=== PATIENT | female | born 1990 | race Caucasian/White ===

== ENCOUNTER 2023-07-16 14:01 | Emergency (ER) | payer OTHER ==
[~2023-07-16] VITALS: Ht 154.9 cm; Wt 56.7 kg
[2023-07-16] MEDS ORDERED: NAPR500T14 PO (15:56)
[2023-07-16] MEDS ORDERED: NORFLEX100MG PO (15:57)
[2023-07-16] MEDS ORDERED: CAMBIA50 MG PO (15:57)
== END 2023-07-17 00:08 | disposition home or self-care (01) ==
LOC: ER 14:01
DX: M54.89 Other dorsalgia (principal)
CPT/HCPCS: 72100; 96372; 99283; J1885; J2360

== ENCOUNTER 2024-03-01 15:09 | Emergency (ER) | payer OTHER ==
[~2024-03-01] VITALS: Ht 154.9 cm; Wt 54.4 kg
[~2024-03-01 15:09] MED LIST: CAMBIA50 MG PO; NAPR500T14 PO; NORFLEX100MG PO
[2024-03-01] MEDS ORDERED: KETOROLAC TROMETHAMINE 30 MG VIAL IM ONE (16:45)
[2024-03-01] MEDS ORDERED: CEFTRIAXONE SODIUM 1,000 MG VIAL IM ONE (16:45)
[2024-03-01] MEDS ORDERED: KETOROLAC TROMETHAMINE 60 MG VIAL IM ONE (16:46)
[2024-03-01] MEDS ORDERED: CEFTRIAXONE SODIUM 1,000 MG VIAL ONE (16:47)
[2024-03-01 17:06] LABS: URINE APPEARANCE Cloudy; URINE BILIRRUBIN Negative (NEGATIVE); URINE BLOOD Large; URINE COLOR Yellow; URINE GLUCOSE Negative (NEGATIVE); URINE KETONE Trace (NEGATIVE); URINE LEUKOCYTE Large; URINE NITRATE Positive
[2024-03-01 17:10] LABS: URINE CAST 7.63 uL (0.0-1.40); URINE EPITHELIAL CELLS 17.7 uL (0.0-38.8); URINE RBC 4173.6 uL (0.0-20.8); URINE WBC 671.9 uL (0.0-23.2)
[2024-03-01 17:50] LABS: URINE BACTERIA > 9821.5 uL (0.0-1933); URINE PROTEIN 100 (NEGATIVE)
== END 2024-03-01 18:37 | disposition home or self-care (01) ==
LOC: ER 15:11
PROVIDERS: General Practice
DX: N39.0 Urinary tract infection, site not specified (principal); R10.2 Pelvic and perineal pain
CPT/HCPCS: 36415; 96372; 99282; J0696; J1885

== ENCOUNTER 2024-06-18 11:37 | Emergency (ER) | payer OTHER ==
[~2024-06-18] VITALS: Ht 154.9 cm; Wt 57.6 kg
[2024-06-18] MEDS ORDERED: TRIAMCINOLONE ACETONIDE 40 MG/ML VIAL IM ONE (12:30)
[2024-06-18] MEDS ORDERED: KETOROLAC TROMETHAMINE 60 MG VIAL IM ONE (12:30)
[2024-06-18 13:52] LABS: PH,URINE 5.5 (5.0-8.0); URINE APPEARANCE Clear; URINE BILIRRUBIN Negative (NEGATIVE); URINE BLOOD Moderate; URINE COLOR Yellow; URINE GLUCOSE Negative (NEGATIVE); URINE LEUKOCYTE Trace; URINE NITRATE Negative; URINE PROTEIN Negative (NEGATIVE)
[2024-06-18 13:53] LABS: URINE BACTERIA 583.8 uL (0.0-1933); URINE EPITHELIAL CELLS 39.8 uL (0.0-38.8); URINE RBC 67.7 uL (0.0-20.8); URINE WBC 13.1 uL (0.0-23.2)
[2024-06-18 13:54] LABS: URINE KETONE 40 (NEGATIVE)
[2024-06-18] MEDS ORDERED: DICLOFENAC SODI75 MG PO (14:17)
== END 2024-06-18 14:23 | disposition home or self-care (01) ==
LOC: ER 11:39
PROVIDERS: General Practice
DX: N39.0 Urinary tract infection, site not specified (principal); M54.9 Dorsalgia, unspecified

== ENCOUNTER 2024-08-04 11:55 | Emergency (ER) | payer OTHER ==
[~2024-08-04] VITALS: Ht 154.9 cm; Wt 58.1 kg
[~2024-08-04 11:55] MED LIST changes: +DICLOFENAC SODI75 MG PO
[2024-08-04] MEDS ORDERED: PEPCID AC20 MG PO (13:11)
[2024-08-04] MEDS ORDERED: ZOFRAN8 MG PO (13:11)
[2024-08-04] MEDS ORDERED: ONDANSETRON HCL 2 MG/ML VIAL IM ONE (13:15)
[2024-08-04] MEDS ORDERED: FAMOtidine 10 MG/ML (4ML VIAL) IV PUSH ONE (13:15)
[2024-08-04] MEDS ORDERED: ONDANSETRON HCL 2 MG/ML VIAL ONE (13:45)
[2024-08-04] MEDS ORDERED: FAMOTIDINE/PF 20 MG/2 ML VIAL ONE (13:45)
== END 2024-08-04 14:23 | disposition home or self-care (01) ==
LOC: ER 11:57
DX: O21.0 Mild hyperemesis gravidarum (principal); Z3A.10 10 weeks gestation of pregnancy
CPT/HCPCS: 96365; 96372; 99282; J2405; J3490

== ENCOUNTER 2024-08-31 17:05 | Emergency (ER) | payer OTHER ==
[~2024-08-31] VITALS: Ht 154.9 cm; Wt 54.4 kg
[~2024-08-31 17:05] MED LIST changes: +PEPCID AC20 MG PO; +ZOFRAN8 MG PO
[2024-08-31] MEDS ORDERED: 0.9 % SODIUM CHLORIDE 1,000 ML IV ONE (18:15)
[2024-08-31] MEDS ORDERED: ONDANSETRON HCL 2 MG/ML VIAL IV ONE (18:15)
[2024-08-31] MEDS ORDERED: PANTOPRAZOLE SODIUM 40 MG/VIAL VIAL IV ONE (18:15)
[2024-08-31 18:28] LABS: HEMATOCRIT 41.1 % (36.0-45.00); HEMOGLOBIN 14.2 g/dL (12.0-15.00); MEAN CELL VOLUME 90.6 fL (80.00-100.00); MEAN CORPUSCULAR HEMOGLOBIN 31.4 pg (27.00-32.0); MEAN CORPUSCULAR HGB CONC 34.6 g/dl (32.0-36.0); PLATELET COUNT 302 K/uL (150-450); RED BLOOD COUNT 4.53 M/uL (4.00-6.00); RED CELL DISTRIBUTION WIDTH 12.4 % (11.5-14.5)
[2024-08-31] MEDS ORDERED: ONDANSETRON HCL 2 MG/ML VIAL ONE (18:28)
[2024-08-31 19:04] LABS: ALBUMIN 3.8 gm/dL (3.4-5.0); BILIRUBIN TOTAL 0.63 mg/dL (0.3-1.2); CALCIUM 9.4 mg/dL (8.5-10.1); CREATININE SERUM 0.65 mg/dL (0.55-1.02); GFR 105.63; GLOBULINA 4.4 G/DL (2.4-3.5); POTASSIUM 3.82 mEq/L (3.5-5.1); TOTAL PROTEIN 8.2 gm/dL (6.4-8.2)
[2024-08-31] MEDS ORDERED: PROTONIX40 MG PO (20:14)
[2024-08-31 20:24] LABS: PH,URINE 5.5 (5.0-8.0); URINE APPEARANCE Cloudy; URINE BILIRRUBIN Negative (NEGATIVE); URINE BLOOD Moderate; URINE GLUCOSE Negative (NEGATIVE); URINE LEUKOCYTE Moderate; URINE NITRATE Negative; URINE PROTEIN Trace (NEGATIVE)
[2024-08-31 21:10] LABS: URINE COLOR Dark Yellow
[2024-08-31 21:11] LABS: URINE BACTERIA 7522.6 uL (0.0-1933); URINE RBC 113.4 uL (0.0-20.8); URINE WBC 211.6 uL (0.0-23.2)
[2024-08-31 21:19] LABS: URINE CAST 0.44 uL (0.0-1.40); URINE KETONE >=160 (NEGATIVE); URINE MUCUS MODERATE
== END 2024-08-31 21:35 | disposition home or self-care (01) ==
LOC: ER 17:08
PROVIDERS: General Practice
DX: O21.0 Mild hyperemesis gravidarum (principal); Z3A.14 14 weeks gestation of pregnancy; N20.0 Calculus of kidney; Z88.8 Allergy status to other drugs, medicaments and biological substances

== ENCOUNTER 2024-12-08 16:57 | Inpatient (IN) | payer OTHER ==
[~2024-12-08] VITALS: Ht 154.9 cm; Wt 59.0 kg
[2024-12-08 16:53] VITALS: BP 106/70
[~2024-12-08 16:57] MED LIST changes: +PROTONIX40 MG PO
[2024-12-08] MEDS ORDERED: MAGNESIUM SULFATE IN WATER 100 ML IV ONE (17:15)
[2024-12-08] MEDS ORDERED: MAGNESIUM SULFATE IN WATER 500 ML IV SCH (17:15)
[2024-12-08] MEDS ORDERED: BETAMETHASONE ACETATE,SOD PHOS 30 MG/5 ML ML IM SCH (17:15)
[2024-12-08] MEDS ORDERED: RINGERS SOLUTION,LACTATED 1,000 ML IV SCH (17:15)
[2024-12-08] MEDS ORDERED: PRENATA CHEWAB1 EACH PO (17:43)
[2024-12-08] MEDS ORDERED: FOLIC ACID1 MG PO (17:44)
[2024-12-08 17:50] LABS: BASO % 0.4 % (0.1-1.2); EOS % 0.8 % (0.7-7.0); HEMATOCRIT 36.9 % (34.1-44.9); HEMOGLOBIN 12.7 g/dL (11.2-15.7); LYMPH # 2.13 (1.18-3.74); LYMPH % 18.1 % (19.3-53.1); MEAN CORPUSCULAR HEMOGLOBIN 31.4 pg (25.6-32.2); MONO # 1.09 (0.24-0.82); MONO % 9.3 % (4.7-12.5); NEUT # 8.36 (1.56-6.13); PLATELET COUNT 302 K/uL (163-369); RED BLOOD COUNT 4.05 M/uL (3.93-5.22); RED CELL DISTRIBUTION WIDTH 12.4 % (11.6-14.4)
[2024-12-08 18:19] LABS: INR < 0.93; PARTIAL THROMBOPLASTIN TIME 25.6 SECONDS (22.0-34.0)
[2024-12-08 18:26] LABS: BILIRUBIN TOTAL 0.29 mg/dL (0.3-1.2); CALCIUM 9.2 mg/dL (8.5-10.1); CREATININE SERUM 0.55 mg/dL (0.55-1.02); GFR 128.09; GLOBULINA 3.7 G/DL (2.4-3.5); POTASSIUM 4.28 mEq/L (3.5-5.1); TOTAL PROTEIN 6.7 gm/dL (6.4-8.2)
[2024-12-08 19:35] VITALS: BP 113/69
[2024-12-08 23:30] VITALS: BP 112/63
[2024-12-09 04:00] VITALS: BP 110/60
[2024-12-09 06:20] VITALS: BP 116/70; O2SAT 99
[2024-12-09] MEDS ORDERED: PNV,CALCIUM 72/IRON/FOLIC ACID 1 TAB TABLET PO SCH (09:00)
[2024-12-09 11:05] VITALS: BP 119/72
[2024-12-09 15:15] VITALS: BP 117/66
[2024-12-09 19:40] VITALS: BP 103/65
[2024-12-09] MEDS ORDERED: MAGNESIUM SULFATE IN WATER 500 ML IV SCH (23:00)
[2024-12-09 23:19] VITALS: BP 104/60
[2024-12-10 03:10] VITALS: BP 101/60
[2024-12-10 06:18] VITALS: BP 107/63; O2SAT 97
[2024-12-10 11:43] VITALS: BP 106/59; O2SAT 97
[2024-12-10] MEDS ORDERED: NIFEDIPINE 30 MG TAB.SA.OSM PO NR (13:00)
[2024-12-10 13:01] VITALS: BP 109/68; O2SAT 97
[2024-12-10 13:11] VITALS: BP 109/68; O2SAT 97
[2024-12-10 16:20] VITALS: BP 98/58
[2024-12-10] MEDS ORDERED: NIFEDIPINE 30 MG TAB.SA.OSM PO SCH (21:00)
[2024-12-11 00:25] VITALS: BP 100/60
[2024-12-11] MEDS ORDERED: NIFE60TA3 PO (07:44)
[2024-12-11 07:54] VITALS: BP 105/61
== END 2024-12-11 10:42 | disposition home or self-care (01) | DRG 833 ==
LOC: LDR 16:57 → OB/GYN 12-10 10:27
PROVIDERS: ADMIT Obstetrics & Gynecology Maternal & Fetal Medicine; ATTEND Obstetrics & Gynecology Maternal & Fetal Medicine
PROC: 4A1HXCZ Monitoring of Products of Conception, Cardiac Rate, External Approach (ICD-10-PCS; principal; 2024-12-08)
DX: O60.03 Preterm labor without delivery, third trimester (principal); Z3A.28 28 weeks gestation of pregnancy

== ENCOUNTER 2024-12-15 11:20 | Outpatient (CLI) | payer OTHER ==
[~2024-12-15 11:20] MED LIST changes: +FOLIC ACID1 MG PO; +NIFE60TA3 PO; +PRENATA CHEWAB1 EACH PO
== END 2024-12-15 12:20 | disposition home or self-care (01) ==
LOC: NST 11:20
PROVIDERS: ATTEND Obstetrics & Gynecology Maternal & Fetal Medicine
DX: Z34.83 Encounter for supervision of other normal pregnancy, third trimester (principal)

== ENCOUNTER 2025-01-25 16:33 | Emergency (ER) | payer OTHER ==
[~2025-01-25] VITALS: Ht 154.9 cm; Wt 63.5 kg
[2025-01-25 19:09] LABS: BASO % 0.5 % (0.1-1.2); EOS # 0.27 (0.04-0.54); EOS % 2.9 % (0.7-7.0); LYMPH # 2.06 (1.18-3.74); LYMPH % 22.1 % (19.3-53.1); MEAN PLATELET VOLUME 10.40 fl (9.4-12.4); MONO # 0.80 (0.24-0.82); MONO % 8.6 % (4.7-12.5); NEUT # 6.12 (1.56-6.13); NEUT % 65.5 % (34.0-71.1); RED CELL DISTRIBUTION WIDTH 11.9 % (11.6-14.4)
[2025-01-25 19:31] LABS: ALT/SGPT 15.0 U/L (12-78); AST/SGOT 21.0 U/L (15-37); BILIRUBIN TOTAL 0.18 mg/dL (0.3-1.2); BUN CREA RATIO 30.0 (7.0-25.0); CREATININE SERUM 0.66 mg/dL (0.55-1.02); GFR 103.78; GLOBULINA 4.2 G/DL (2.4-3.5); GLUCOSE FASTING 83.0 mg/dL (65-100); OSMOLALITY SERUM 279.0 MOSM/KG (275-295)
[2025-01-25 20:19] LABS: COVID-19 AG POSITIVE (NEGATIVE)
[2025-01-25] MEDS ORDERED: GUAIFENESIN 200 MG/10 ML BLIST.PACK PO STA (20:25)
[2025-01-25] MEDS ORDERED: GUAIFENESIN 200 MG/10 ML BLIST.PACK PO ONE (20:28)
== END 2025-01-25 21:19 | disposition home or self-care (01) ==
LOC: ER 16:43
PROVIDERS: General Practice
DX: Z34.90 Encounter for supervision of normal pregnancy, unspecified, unspecified trimester (principal); Z3A.35 35 weeks gestation of pregnancy; U07.1 COVID-19; Z88.5 Allergy status to narcotic agent

== ENCOUNTER 2025-01-27 12:43 | Inpatient (IN) | payer OTHER ==
[~2025-01-27] VITALS: Ht 152.4 cm; Wt 64.4 kg
[2025-01-27 12:50] VITALS: BP 107/72
[2025-01-27] MEDS ORDERED: BETAMETHASONE ACETATE,SOD PHOS 30 MG/5 ML ML IM ONE (13:15)
[2025-01-27] MEDS ORDERED: RINGERS SOLUTION,LACTATED 1,000 ML IV SCH (13:15)
[2025-01-27 13:54] LABS: BASO % 0.6 % (0.1-1.2); EOS # 0.38 (0.04-0.54); EOS % 4.3 % (0.7-7.0); LYMPH # 2.61 (1.18-3.74); LYMPH % 29.5 % (19.3-53.1); MEAN PLATELET VOLUME 10.90 fl (9.4-12.4); MONO # 0.69 (0.24-0.82); MONO % 7.8 % (4.7-12.5); NEUT # 5.09 (1.56-6.13); NEUT % 57.5 % (34.0-71.1); RED CELL DISTRIBUTION WIDTH 11.9 % (11.6-14.4)
[2025-01-27 14:10] LABS: ALT/SGPT 16.0 U/L (12-78); AST/SGOT 20.0 U/L (15-37); BILIRUBIN TOTAL 0.19 mg/dL (0.3-1.2); BUN CREA RATIO 28.0 (7.0-25.0); CREATININE SERUM 0.65 mg/dL (0.55-1.02); GFR 105.63; GLOBULINA 3.8 G/DL (2.4-3.5); GLUCOSE FASTING 67.0 mg/dL (65-100); OSMOLALITY SERUM 278.0 MOSM/KG (275-295)
[2025-01-27 14:19] LABS: INR < 0.93
[2025-01-27 15:20] VITALS: BP 146/88; O2SAT 97
[2025-01-27 15:21] VITALS: BP 133/79
[2025-01-27 15:45] LABS: EOSINOPHIL MAN 6.0 %; LYMPHOCYTE MAN 19.0 %; MONOCYTE MAN 1.0 %; NEUTROPHILS MAN 68.0 %
[2025-01-27 19:33] VITALS: BP 117/72; O2SAT 97
[2025-01-27 23:24] VITALS: BP 110/68
[2025-01-28] VITALS (8 sets, daily range): BP systolic 106–170; BP diastolic 63–90
[2025-01-28 09:17] LABS: COVID-19 AG NEGATIVE (NEGATIVE)
[2025-01-28] MEDS ORDERED: BETAMETHASONE ACETATE,SOD PHOS 30 MG/5 ML ML IM ONE (13:15)
[2025-01-28] MEDS ORDERED: LABETALOL HCL 100 MG/20 ML ML IV PUSH ONE (20:00)
[2025-01-28] MEDS ORDERED: LABETALOL HCL 100 MG/20 ML ML ONE (20:03)
[2025-01-28] MEDS ORDERED: LABETALOL HCL 200 MG/40 ML VIAL IV STA (20:08)
[2025-01-28] MEDS ORDERED: MAGNESIUM SULFATE IN WATER 500 ML IV SCH (20:15)
[2025-01-28] MEDS ORDERED: MAGNESIUM SULFATE IN WATER 4 GM/100 ML PIGGYBACK IV SCH (20:15)
[2025-01-28] MEDS ORDERED: LABETALOL HCL 200 MG TABLET PO SCH (21:00)
[2025-01-29 03:55] VITALS: BP 131/64
[2025-01-29 06:28] VITALS: BP 123/64; O2SAT 96
[2025-01-29] MEDS ORDERED: CITRIC ACID/SODIUM CITRATE 30 ML BLIST.PACK PO SCH (08:45)
[2025-01-29] MEDS ORDERED: CEFAZOLIN SODIUM 1,000 MG VIAL IV SCH (08:45)
[2025-01-29 11:30] VITALS: BP 124/70
[2025-01-29] MEDS ORDERED: OXYTOCIN 10 UNITS/ML VIAL ONE ×3 (12:53→18:14)
[2025-01-29] MEDS ORDERED: OXYTOCIN 1,000 ML IV SCH (13:30)
[2025-01-29] MEDS ORDERED: MORPHINE SULFATE 4 MG/ML CARTRIDGE IV PRN (13:30)
[2025-01-29] MEDS ORDERED: OxyCODONE HCL 5 MG TABLET (ROXICODONE) PO PRN (14:00)
[2025-01-29] MEDS ORDERED: ERYTHROMYCIN BASE OPHT 1GM EACH TUBE OP ONE (15:00)
[2025-01-29] MEDS ORDERED: GABAPENTIN 300 MG CAPSULE PO SCH (17:00)
[2025-01-29] MEDS ORDERED: LABETALOL HCL 100 MG TABLET PO SCH (17:00)
[2025-01-29] MEDS ORDERED: ACETAMINOPHEN 500 MG GEL..CAP PO ONE (17:09)
[2025-01-29 18:56] VITALS: BP 150/70
[2025-01-29] MEDS ORDERED: LABETALOL HCL 200 MG TABLET PO SCH (22:32)
[2025-01-29 22:34] VITALS: BP 195/94; BP 200/80
[2025-01-30] VITALS (31 sets, daily range): BP systolic 90–175; BP diastolic 59–100; O2SAT 42–100
[2025-01-30] MEDS ORDERED: hydrALAZINE HCL 20 MG VIAL ONE (01:19)
[2025-01-30] MEDS ORDERED: hydrALAZINE HCL 20 MG VIAL IV ONE ×2 (01:25→01:30)
[2025-01-30] MEDS ORDERED: MAGNESIUM SULFATE IN WATER 500 ML IV SCH (01:35)
[2025-01-30] MEDS ORDERED: MAGNESIUM SULFATE IN WATER 0.04 GM/ML IV.SOLN IV ONE (02:00)
[2025-01-30] MEDS ORDERED: PROPOFOL 100 ML IV SCH (02:30)
[2025-01-30] MEDS ORDERED: MIDAZOLAM HCL 50 MG in 0.9 % SODIUM CHLORIDE 100 ML IV SCH (02:30)
[2025-01-30] MEDS ORDERED: LABETALOL HCL 100 MG/20 ML ML IV PRN (02:45)
[2025-01-30 03:26] LABS: ABG PH 7.328 (7.35-7.45); ABG PO2 36.4 mmHg (80-100); BICARBONATE 25.8 mmol/l (23-25)
[2025-01-30 03:28] LABS: o2 100 %
[2025-01-30 03:30] LABS: ABG PH 7.424 (7.35-7.45)
[2025-01-30 03:31] LABS: ABG PO2 41.7 mmHg (80-100); BICARBONATE 22.3 mmol/l (23-25); o2 100 %
[2025-01-30] MEDS ORDERED: CISATRACURIUM BESYLATE 100 MG in 0.9 % SODIUM CHLORIDE 250 ML IV SCH (04:00)
[2025-01-30 04:36] LABS: BASO % 0.1 % (0.1-1.2); EOS # 0.02 (0.04-0.54); EOS % 0.1 % (0.7-7.0); LYMPH # 1.14 (1.18-3.74); LYMPH % 7.1 % (19.3-53.1); MEAN PLATELET VOLUME 10.60 fl (9.4-12.4); MONO # 1.07 (0.24-0.82); MONO % 6.7 % (4.7-12.5); NEUT # 13.57 (1.56-6.13); NEUT % 84.9 % (34.0-71.1); RED CELL DISTRIBUTION WIDTH 12.5 % (11.6-14.4)
[2025-01-30 04:46] LABS: BILIRUBIN TOTAL 1.19 mg/dL (0.3-1.2); BUN CREA RATIO 17.0 (7.0-25.0); CREATININE SERUM 0.78 mg/dL (0.55-1.02); GFR 85.59; GLOBULINA 3.1 G/DL (2.4-3.5); GLUCOSE FASTING 99.0 mg/dL (65-100); OSMOLALITY SERUM 283.0 MOSM/KG (275-295)
[2025-01-30 04:50] LABS: ALT/SGPT 684.0 U/L (12-78); AST/SGOT 1077.0 U/L (15-37)
[2025-01-30 07:43] LABS: URINE APPEARANCE Cloudy; URINE BILIRRUBIN Small (NEGATIVE); URINE BLOOD Large; URINE COLOR Red; URINE GLUCOSE Negative (NEGATIVE); URINE KETONE Negative (NEGATIVE); URINE LEUKOCYTE Small; URINE NITRATE Positive; URINE UROBILINOGEN 0.2 E.U./dl
[2025-01-30 07:53] LABS: URINE BACTERIA 80.4 uL (0.0-1933); URINE CAST 2.78 uL (0.0-1.40); URINE EPITHELIAL CELLS 9.9 uL (0.0-38.8); URINE RBC 6246.3 uL (0.0-20.8); URINE WBC 15.3 uL (0.0-23.2)
[2025-01-30] MEDS ORDERED: MIDAZOLAM HCL 100 MG in 0.9 % SODIUM CHLORIDE 100 ML IV SCH (08:30)
[2025-01-30] MEDS ORDERED: ENOXAPARIN SODIUM 40 MG/0.4 ML SYRINGE SUBCUTANEO SCH (09:00)
[2025-01-30] MEDS ORDERED: PANTOPRAZOLE SODIUM 40 MG/VIAL VIAL IV SCH (09:00)
[2025-01-30 09:12] LABS: URINE PROTEIN 300 (NEGATIVE)
[2025-01-30] MEDS ORDERED: CEFTRIAXONE SODIUM 2,000 MG in 0.9 % SODIUM CHLORIDE 100 ML IV SCH (10:30)
[2025-01-30] MEDS ORDERED: LABETALOL HCL 200 MG/40 ML VIAL IV SCH (11:54)
[2025-01-30] MEDS ORDERED: LABETALOL HCL 200 MG TABLET PO NR (12:20)
[2025-01-30 13:19] LABS: ABG PH 7.216 (7.35-7.45); ABG PO2 344.6 mmHg (80-100); BICARBONATE 30.7 mmol/l (23-25)
[2025-01-30 13:56] LABS: o2 100 %
[2025-01-30] MEDS ORDERED: LABETALOL HCL 200 MG TABLET PO SCH (17:00)
[2025-01-30 18:14] LABS: ABG PH 7.239 (7.35-7.45)
[2025-01-30 18:17] LABS: ABG PO2 218.3 mmHg (80-100); BICARBONATE 30.4 mmol/l (23-25); o2 100 %
[2025-01-30] MEDS ORDERED: DEXAMETHASONE SODIUM PHOSPHATE 4 MG/ML VIAL IV SCH (20:45)
[2025-01-30] MEDS ORDERED: REMDESIVIR 100 MG VIAL IV ONE (20:45)
[2025-01-30 23:33] LABS: INR < 0.93
[2025-01-31] VITALS (23 sets, daily range): BP systolic 92–124; BP diastolic 63–82; O2SAT 100
[2025-01-31 07:32] LABS: BASO % 0.1 % (0.1-1.2); EOS # 0.01 (0.04-0.54); EOS % 0.1 % (0.7-7.0); LYMPH # 0.75 (1.18-3.74); LYMPH % 6.5 % (19.3-53.1); MEAN PLATELET VOLUME 13.20 fl (9.4-12.4); MONO # 0.33 (0.24-0.82); MONO % 2.9 % (4.7-12.5); NEUT # 10.38 (1.56-6.13); NEUT % 89.9 % (34.0-71.1); RED CELL DISTRIBUTION WIDTH 12.8 % (11.6-14.4)
[2025-01-31 08:15] LABS: ALT/SGPT 877.0 U/L (12-78); BILIRUBIN TOTAL 0.62 mg/dL (0.3-1.2); BUN CREA RATIO 22.0 (7.0-25.0); CREATININE SERUM 0.88 mg/dL (0.55-1.02); GFR 74.46; GLOBULINA 3.2 G/DL (2.4-3.5); GLUCOSE FASTING 133.0 mg/dL (65-100); OSMOLALITY SERUM 276.0 MOSM/KG (275-295)
[2025-01-31 08:39] LABS: AST/SGOT 1045.0 U/L (15-37)
[2025-01-31] MEDS ORDERED: CALCIUM GLUCONATE 100 MG/ML VIAL IV ONE ×2 (08:45→21:15)
[2025-01-31] MEDS ORDERED: AZITHROMYCIN 500 MG VIAL IV SCH (09:00)
[2025-01-31] MEDS ORDERED: REMDESIVIR 100 MG VIAL IV SCH (09:00)
[2025-01-31 09:44] LABS: ABG PH 7.381 (7.35-7.45); ABG PO2 374.8 mmHg (80-100); BICARBONATE 30.9 mmol/l (23-25)
[2025-01-31 09:45] LABS: o2 100 %
[2025-01-31 11:06] LABS: ABG PH 7.394 (7.35-7.45); ABG PO2 326.1 mmHg (80-100); BICARBONATE 31.3 mmol/l (23-25)
[2025-01-31 11:07] LABS: o2 80 %
[2025-01-31] MEDS ORDERED: CALCIUM GLUCONATE 100 MG/ML VIAL IV NR (12:00)
[2025-01-31 18:32] LABS: BASO % 0.1 % (0.1-1.2); EOS # 0.01 (0.04-0.54); EOS % 0.1 % (0.7-7.0); LYMPH # 0.89 (1.18-3.74); LYMPH % 8.1 % (19.3-53.1); MEAN PLATELET VOLUME 11.90 fl (9.4-12.4); MONO # 0.56 (0.24-0.82); MONO % 5.1 % (4.7-12.5); NEUT # 9.44 (1.56-6.13); NEUT % 85.9 % (34.0-71.1); RED CELL DISTRIBUTION WIDTH 12.6 % (11.6-14.4)
[2025-01-31 18:51] LABS: BUN CREA RATIO 31.0 (7.0-25.0); CREATININE SERUM 0.75 mg/dL (0.55-1.02); GFR 89.55; GLUCOSE FASTING 115.0 mg/dL (65-100); OSMOLALITY SERUM 284.0 MOSM/KG (275-295)
[2025-01-31 19:16] LABS: D DIMER 5.66 MG/L
[2025-01-31] MEDS ORDERED: POTASSIUM CHLORIDE 20MEQ/100ML H2O PB IV SCH (21:15)
[2025-02-01] VITALS (15 sets, daily range): BP systolic 115–1222; BP diastolic 56–99; O2SAT 97–100
[2025-02-01 08:04] LABS: COVID-19 AG NEGATIVE (NEGATIVE)
[2025-02-01 08:08] LABS: ALT/SGPT 657.0 U/L (12-78); AST/SGOT 461.0 U/L (15-37); BILIRUBIN TOTAL 0.5 mg/dL (0.3-1.2); BILIRUBIN,CONJUGATED 0.12 mg/dL (0.0-0.2); BUN CREA RATIO 32.0 (7.0-25.0); CREATININE SERUM 0.73 mg/dL (0.55-1.02); GFR 92.39; GLOBULINA 3.2 G/DL (2.4-3.5); GLUCOSE FASTING 86.0 mg/dL (65-100); LDH 814.0 U/L (84-246); OSMOLALITY SERUM 290.0 MOSM/KG (275-295)
[2025-02-01 08:50] LABS: BASO % 0.1 % (0.1-1.2); EOS # 0.03 (0.04-0.54); EOS % 0.3 % (0.7-7.0); LYMPH # 1.33 (1.18-3.74); LYMPH % 11.3 % (19.3-53.1); MEAN PLATELET VOLUME 11.60 fl (9.4-12.4); MONO # 0.73 (0.24-0.82); MONO % 6.2 % (4.7-12.5); NEUT # 9.62 (1.56-6.13); NEUT % 81.4 % (34.0-71.1); RED CELL DISTRIBUTION WIDTH 12.8 % (11.6-14.4)
[2025-02-01] MEDS ORDERED: CHLORHEXIDINE GLUCONATE 15ML BRUSH KIT MM SCH (09:00)
[2025-02-01] MEDS ORDERED: POLYVINYL ALCOHOL 15 ML DROPS OP SCH (09:00)
[2025-02-01 09:20] LABS: ABG PH 7.561 (7.35-7.45); ABG PO2 200.7 mmHg (80-100); BICARBONATE 29.5 mmol/l (23-25); o2 60 %
[2025-02-02] VITALS (15 sets, daily range): BP systolic 110–136; BP diastolic 72–91; O2SAT 98–100
[2025-02-02] MEDS ORDERED: LABETALOL HCL 100 MG/20 ML ML IV SCH (09:00)
[2025-02-02 10:16] LABS: ABG PH 7.497 (7.35-7.45); ABG PO2 100.9 mmHg (80-100); BICARBONATE 29.5 mmol/l (23-25)
[2025-02-02 10:19] LABS: o2 40 %
[2025-02-02] MEDS ORDERED: MIDAZOLAM HCL 100 MG in 0.9 % SODIUM CHLORIDE 100 ML IV SCH (13:30)
[2025-02-03] VITALS (14 sets, daily range): BP systolic 119–158; BP diastolic 81–105; O2SAT 96–100
[2025-02-03] MEDS ORDERED: AMINO ACIDS/PROTEIN HYDROLYS 30 ML BLIST.PACK NGT SCH (01:00)
[2025-02-03 06:39] LABS: BASO % 0.1 % (0.1-1.2); EOS # 0.02 (0.04-0.54); EOS % 0.2 % (0.7-7.0); LYMPH # 1.88 (1.18-3.74); LYMPH % 16.1 % (19.3-53.1); MEAN PLATELET VOLUME 9.80 fl (9.4-12.4); MONO # 1.18 (0.24-0.82); MONO % 10.1 % (4.7-12.5); NEUT # 8.42 (1.56-6.13); NEUT % 71.9 % (34.0-71.1); RED CELL DISTRIBUTION WIDTH 13.3 % (11.6-14.4)
[2025-02-03 07:07] LABS: COVID-19 AG NEGATIVE (NEGATIVE)
[2025-02-03 07:45] LABS: ALT/SGPT 552.0 U/L (12-78); AST/SGOT 361.0 U/L (15-37); BILIRUBIN TOTAL 0.51 mg/dL (0.3-1.2); BUN CREA RATIO 49.0 (7.0-25.0); CREATININE SERUM 0.67 mg/dL (0.55-1.02); GFR 102.0; GLOBULINA 3.5 G/DL (2.4-3.5); GLUCOSE FASTING 93.0 mg/dL (65-100); OSMOLALITY SERUM 303.0 MOSM/KG (275-295)
[2025-02-03 10:23] LABS: ABG PH 7.467 (7.35-7.45); ABG PO2 111.9 mmHg (80-100); BICARBONATE 27.2 mmol/l (23-25)
[2025-02-03 10:24] LABS: o2 30 %
[2025-02-03] MEDS ORDERED: DEXTROSE 5 % IN WATER 1,000 ML IV SCH (11:30)
[2025-02-03 14:44] LABS: ABG PH 7.455 (7.35-7.45); ABG PO2 156.1 mmHg (80-100); BICARBONATE 23.8 mmol/l (23-25)
[2025-02-03 14:45] LABS: o2 30 %
[2025-02-03] MEDS ORDERED: TRAMADOL HCL 50 MG TABLET PO ONE (16:00)
[2025-02-03 16:14] LABS: ABG PH 7.462 (7.35-7.45); BICARBONATE 23.8 mmol/l (23-25)
[2025-02-03 16:15] LABS: o2 50 %
[2025-02-03 16:16] LABS: ABG PO2 184.3 mmHg (80-100)
[2025-02-03] MEDS ORDERED: BENZONATATE 100 MG CAPSULE PO SCH (22:30)
[2025-02-03] MEDS ORDERED: IPRATROPIUM BROMIDE 0.5 MG/2.5 ML AMPUL.NEB IH SCH (22:31)
[2025-02-03] MEDS ORDERED: ALBUTEROL SULFATE 3 ML/2.5 MG AMPUL.NEB IH SCH (22:31)
[2025-02-04] VITALS (8 sets, daily range): BP systolic 129–155; BP diastolic 88–99; O2SAT 99–100
[2025-02-04 06:56] LABS: URINE APPEARANCE Cloudy; URINE BILIRRUBIN Small (NEGATIVE); URINE BLOOD Large; URINE COLOR Red; URINE GLUCOSE Negative (NEGATIVE); URINE KETONE Negative (NEGATIVE); URINE LEUKOCYTE Moderate; URINE NITRATE Negative; URINE UROBILINOGEN 1.0 E.U./dl
[2025-02-04 06:57] LABS: URINE BACTERIA 509.9 uL (0.0-1933); URINE EPITHELIAL CELLS 6.1 uL (0.0-38.8); URINE WBC 98.1 uL (0.0-23.2)
[2025-02-04 07:10] LABS: URINE CAST 0.20 uL (0.0-1.40); URINE PROTEIN 100 (NEGATIVE); URINE RBC > 10558.9 uL (0.0-20.8)
[2025-02-04 08:52] LABS: BASO % 0.2 % (0.1-1.2); EOS # 0.21 (0.04-0.54); EOS % 1.1 % (0.7-7.0); LYMPH # 1.89 (1.18-3.74); LYMPH % 10.2 % (19.3-53.1); MEAN PLATELET VOLUME 9.50 fl (9.4-12.4); MONO # 1.34 (0.24-0.82); MONO % 7.2 % (4.7-12.5); NEUT # 14.85 (1.56-6.13); NEUT % 79.8 % (34.0-71.1); RED CELL DISTRIBUTION WIDTH 12.7 % (11.6-14.4)
[2025-02-04] MEDS ORDERED: LOSARTAN POTASSIUM 50 MG TABLET PO SCH (09:00)
[2025-02-04] MEDS ORDERED: CARVEDILOL 3.125 MG TABLET PO SCH (09:00)
[2025-02-04] MEDS ORDERED: BENZONATATE 200 MG CAPSULE PO SCH (09:00)
[2025-02-04 10:16] LABS: ALT/SGPT 382.0 U/L (12-78); AST/SGOT 115.0 U/L (15-37); BILIRUBIN TOTAL 0.81 mg/dL (0.3-1.2); BUN CREA RATIO 42.0 (7.0-25.0); CREATININE SERUM 0.45 mg/dL (0.55-1.02); GFR 161.47; GLOBULINA 3.7 G/DL (2.4-3.5); GLUCOSE FASTING 134.0 mg/dL (65-100); OSMOLALITY SERUM 282.0 MOSM/KG (275-295)
[2025-02-04] MEDS ORDERED: RINGERS SOLUTION,LACTATED 1,000 ML IV SCH (12:30)
[2025-02-04] MEDS ORDERED: DEXTROSE 50 % IN WATER 0.5 G/ML VIAL IV PRN (15:30)
[2025-02-04] MEDS ORDERED: INSULIN LISPRO 1,000 UNIT/10 ML UNITS SUBCUTANEO PRN (15:30)
[2025-02-04] MEDS ORDERED: ACETAMINOPHEN 325 MG TABLET PO ONE (20:00)
[2025-02-05] VITALS (10 sets, daily range): BP systolic 130–158; BP diastolic 88–99; O2SAT 96–100
[2025-02-05 07:11] LABS: BASO % 0.3 % (0.1-1.2); EOS # 0.20 (0.04-0.54); EOS % 1.3 % (0.7-7.0); LYMPH # 1.85 (1.18-3.74); LYMPH % 12.3 % (19.3-53.1); MEAN PLATELET VOLUME 9.90 fl (9.4-12.4); MONO # 1.15 (0.24-0.82); MONO % 7.7 % (4.7-12.5); NEUT # 11.40 (1.56-6.13); NEUT % 75.9 % (34.0-71.1); RED CELL DISTRIBUTION WIDTH 12.5 % (11.6-14.4)
[2025-02-05 08:10] LABS: ALT/SGPT 243.0 U/L (12-78); AST/SGOT 47.0 U/L (15-37); BILIRUBIN TOTAL 0.62 mg/dL (0.3-1.2); BUN CREA RATIO 52.0 (7.0-25.0); CREATININE SERUM 0.46 mg/dL (0.55-1.02); GFR 157.42; GLOBULINA 3.4 G/DL (2.4-3.5); GLUCOSE FASTING 93.0 mg/dL (65-100); OSMOLALITY SERUM 285.0 MOSM/KG (275-295)
[2025-02-05] MEDS ORDERED: LOSARTAN POTASSIUM 100 MG TABLET PO SCH (09:00)
[2025-02-05] MEDS ORDERED: CARVEDILOL 6.25 MG TABLET PO SCH (09:00)
[2025-02-05] MEDS ORDERED: MAGNESIUM SULFATE IN WATER 50 ML IV NR (10:45)
[2025-02-05] MEDS ORDERED: GUAIFENESIN 100 MG/5 ML BLIST.PACK PO SCH (12:00)
[2025-02-05] MEDS ORDERED: ACETAMINOPHEN 500 MG GEL..CAP PO NR (12:20)
[2025-02-05] MEDS ORDERED: KETOROLAC TROMETHAMINE 30 MG VIAL IV ONE (20:45)
[2025-02-06 04:00] VITALS: BP 142/90; O2SAT 99
[2025-02-06 07:26] VITALS: BP 148/90; O2SAT 100
[2025-02-06] MEDS ORDERED: ALBUTEROL SULFATE 3 ML/2.5 MG AMPUL.NEB IH SCH (09:00)
[2025-02-06 13:30] VITALS: BP 143/85; O2SAT 98
[2025-02-06 15:12] VITALS: BP 141/93; O2SAT 99
[2025-02-06 18:49] VITALS: BP 147/81; O2SAT 97
[2025-02-06] MEDS ORDERED: hydrALAZINE HCL 20 MG VIAL IV ONE (20:00)
[2025-02-07 00:22] VITALS: BP 137/87; O2SAT 98
[2025-02-07 07:39] LABS: ALT/SGPT 131.0 U/L (12-78); AST/SGOT 33.0 U/L (15-37); BILIRUBIN TOTAL 0.56 mg/dL (0.3-1.2); BUN CREA RATIO 36.0 (7.0-25.0); CREATININE SERUM 0.39 mg/dL (0.55-1.02); GFR 190.46; GLOBULINA 3.0 G/DL (2.4-3.5); GLUCOSE FASTING 78.0 mg/dL (65-100); OSMOLALITY SERUM 286.0 MOSM/KG (275-295)
[2025-02-07 08:00] VITALS: BP 140/80
[2025-02-07 08:21] LABS: BASO % 0.2 % (0.1-1.2); EOS # 0.14 (0.04-0.54); EOS % 1.3 % (0.7-7.0); LYMPH # 2.15 (1.18-3.74); LYMPH % 19.8 % (19.3-53.1); MEAN PLATELET VOLUME 10.20 fl (9.4-12.4); MONO # 1.14 (0.24-0.82); MONO % 10.5 % (4.7-12.5); NEUT # 7.28 (1.56-6.13); NEUT % 66.8 % (34.0-71.1); RED CELL DISTRIBUTION WIDTH 12.5 % (11.6-14.4)
[2025-02-07] MEDS ORDERED: MAGNESIUM SULFATE IN WATER 50 ML IV ONE (12:45)
[2025-02-07 14:35] VITALS: BP 138/86
[2025-02-07] MEDS ORDERED: GUAIFENESIN 100 MG/5 ML BLIST.PACK PO SCH (15:30)
[2025-02-07 16:32] VITALS: BP 138/83
[2025-02-07 21:00] VITALS: BP 119/77
[2025-02-08] VITALS: BP 127/81; O2SAT 99
[2025-02-08 05:30] VITALS: BP 126/79
[2025-02-08 08:12] VITALS: BP 112/74
== END 2025-02-08 17:45 | disposition home or self-care (01) | DRG 786 ==
LOC: LDR 12:43 → O/R 12:43 → LDR 16:33 → O/R 01-29 12:44 → OB/GYN 01-29 15:08 → ICU 01-30 11:54 → OB/GYN 02-06 18:42
PROVIDERS: Internal Medicine; Internal Medicine Infectious Disease; Obstetrics & Gynecology; ADMIT Obstetrics & Gynecology; ATTEND Obstetrics & Gynecology
PROC: 4A1HXCZ Monitoring of Products of Conception, Cardiac Rate, External Approach (ICD-10-PCS; 2025-01-27)
PROC: BY47ZZZ Ultrasonography of Fetal Umbilical Cord (ICD-10-PCS; 2025-01-27)
PROC: BY4FZZZ Ultrasonography of Third Trimester, Single Fetus (ICD-10-PCS; 2025-01-27)
PROC: 10D00Z1 Extraction of Products of Conception, Low, Open Approach (ICD-10-PCS; principal; 2025-01-29 18:15)
PROC: 4A033R1 Measurement of Arterial Saturation, Peripheral, Percutaneous Approach (ICD-10-PCS; 2025-01-30)
PROC: BB24ZZZ Computerized Tomography (CT Scan) of Bilateral Lungs (ICD-10-PCS; 2025-01-30)
PROC: B246ZZZ Ultrasonography of Right and Left Heart (ICD-10-PCS; 2025-01-30)
PROC: 0BH17EZ Insertion of Endotracheal Airway into Trachea, Via Natural or Artificial Opening (ICD-10-PCS; 2025-01-30)
PROC: BW40ZZZ Ultrasonography of Abdomen (ICD-10-PCS; 2025-01-31)
PROC: 5A1945Z Respiratory Ventilation, 24-96 Consecutive Hours (ICD-10-PCS; 2025-01-31)
PROC: 0DH67UZ Insertion of Feeding Device into Stomach, Via Natural or Artificial Opening (ICD-10-PCS; 2025-02-03)
PROC: 3E0G76Z Introduction of Nutritional Substance into Upper GI, Via Natural or Artificial Opening (ICD-10-PCS; 2025-02-03)
PROC: BW28ZZZ Computerized Tomography (CT Scan) of Head (ICD-10-PCS; 2025-02-04)
PROC: 3E0F7GC Introduction of Other Therapeutic Substance into Respiratory Tract, Via Natural or Artificial Opening (ICD-10-PCS; 2025-02-06)
DX: O36.5930 Maternal care for other known or suspected poor fetal growth, third trimester, not applicable or unspecified (principal); J96.01 Acute respiratory failure with hypoxia; O60.14X0 Preterm labor third trimester with preterm delivery third trimester, not applicable or unspecified; O90.3 Peripartum cardiomyopathy; J81.1 Chronic pulmonary edema; O99.12 Other diseases of the blood and blood-forming organs and certain disorders involving the immune mechanism complicating childbirth; O26.843 Uterine size-date discrepancy, third trimester; O36.8130 Decreased fetal movements, third trimester, not applicable or unspecified; O14.04 Mild to moderate pre-eclampsia, complicating childbirth; O14.24 HELLP syndrome, complicating childbirth; O12.04 Gestational edema, complicating childbirth; O99.52 Diseases of the respiratory system complicating childbirth; Z3A.35 35 weeks gestation of pregnancy; Z37.0 Single live birth; Z20.822 Contact with and (suspected) exposure to COVID-19